=== PATIENT | male | born 1985 | race Caucasian/White ===

== ENCOUNTER 2016-10-17 22:12 | Emergency (ER) | payer SELFPAY ==
[~2016-10-17] VITALS: Ht 177.8 cm; Wt 85.0 kg
[2016-10-17] MEDS ORDERED: KETOROLAC 60MG/2ML VIAL IM ONE (23:15)
[2016-10-18 01:13] VITALS: BP 129/77
== END 2016-10-18 02:45 | disposition home or self-care (01) ==
LOC: ER 23:56
DX: R07.89 Other chest pain (principal); R03.0 Elevated blood-pressure reading, without diagnosis of hypertension
CPT/HCPCS: 71020; 93005; 96372; 99284; J1885